=== PATIENT | female | born 1955 | race Caucasian/White ===

== ENCOUNTER 2020-05-06 10:34 | Outpatient (REF) | payer MEDICARE, SELFPAY ==
[2020-05-06 13:41] LABS: Iron 41 mcg/dL (30-160); Percent Iron Saturation 10 % (15-50); Total Iron Binding Capacity 405 mcg/dL (228-428); Unsaturated Iron Binding 364 ug/dL
[2020-05-06 14:05] LABS: Ferritin 10 ng/mL (10-250)
[2020-05-06 14:27] LABS: Folate 3.9 ng/mL (> or = 4.0); Vitamin B12 249 pg/mL (200-900)
== END 2020-05-06 10:35 | disposition home or self-care (01) ==
LOC: HO.MANLDS 10:34
PROVIDERS: PCP Physician Assistant; Visit Provider Physician Assistant
DX: L60.8 Other nail disorders (principal)
CPT/HCPCS: 82607; 82728; 82746; 83540

== ENCOUNTER 2021-06-02 10:23 | Outpatient (REF) | payer MEDICARE, SELFPAY ==
[2021-06-02 13:56] LABS: MANUAL DIFF FLAG NO
[2021-06-02 14:01] LABS: Basophils Percent Auto 0.6 % (0-2); Eosinophils Absolute Auto 0.2 X10*3/uL (0.0-0.4); Eosinophils Percent Auto 3.1 % (0-4); Hematocrit 26.7 % (37.0-47.0); Hemoglobin 7.4 g/dl (12.0-16.0); Imm Gran Abs Auto 0.03 X10*3/uL (0.00-0.03); Imm Gran Pct Auto 0.4 % (0.0-0.4); Lymphocytes Absolute Auto 1.9 X10*3/uL (1.2-4.9); Lymphocytes Percent Auto 27.8 % (20-40); Mean Corpuscular HGB Conc 27.7 g/dl (31.0-35.0); Mean Corpuscular Hemoglobin 21.6 pg (27.0-33.0); Mean Corpuscular Volume 78.1 fL (80.0-98.0); Mean Platelet Volume 10.1 fL (9.4-12.3); Monocytes Percent Auto 15.4 % (2-11); Neutrophils Absolute Auto 3.6 x10*3/uL (2.0-8.3); Neutrophils Percent Auto 52.7 % (45-73); Platelet Count 389 X10*3/uL (160-400); Red Blood Count 3.42 X10*6/uL (4.20-5.50); White Blood Count 6.8 X10*3/uL (4.8-10.8)
[2021-06-02 14:25] LABS: Alanine Aminotransferase 12 U/L (0-31); Alkaline Phosphatase 91 U/L (39-117); Anion Gap 16 (12-20); Aspartate Amino Transferase 17 U/L (5-31); Bilirubin Total 0.2 mg/dL (0.0-1.0); Blood Urea Nitrogen 11 mg/dL (9-16); Calcium 9.1 mg/dL (8.4-10.2); Carbon Dioxide 23 mmol/L (22-29); Chloride 104 mmol/L (96-108); Cholesterol 108 mg/dL; Estimated Glomerular Filt Rate > 60; Glucose Fasting 87 mg/dL (60-99); HDL Cholesterol 44 mg/dL; LDL Cholesterol Calculated 43 mg/dl; Potassium 4.6 mmol/L (3.3-5.1); Sodium 138 mmol/L (135-145); Total Protein 7.2 g/dL (6.5-8.0); Triglycerides 108 mg/dL
== END 2021-06-02 10:24 | disposition home or self-care (01) ==
LOC: HO.MANLDS 10:23
PROVIDERS: PCP Physician Assistant; Visit Provider Physician Assistant
DX: F17.290 Nicotine dependence, other tobacco product, uncomplicated (principal)
CPT/HCPCS: 36415; 80053; 80061; 85025

== ENCOUNTER 2021-07-14 15:42 | Outpatient (REF) | payer MEDICARE, SELFPAY ==
[2021-07-14 18:05] LABS: Iron 13 mcg/dL (30-160); Percent Iron Saturation 2 % (15-50); Total Iron Binding Capacity 529 mcg/dL (228-428); Unsaturated Iron Binding 516 ug/dL
[2021-07-14 18:26] LABS: Ferritin 6 ng/mL (10-250)
== END 2021-07-14 15:43 | disposition home or self-care (01) ==
LOC: HO.MANLDS 15:42
PROVIDERS: PCP Physician Assistant; Visit Provider Physician Assistant
DX: D64.9 Anemia, unspecified (principal)
CPT/HCPCS: 36415; 82728; 83540

== ENCOUNTER 2021-08-17 14:25 | Outpatient (REF) | payer MEDICARE, SELFPAY ==
[2021-08-17 19:59] LABS: Hematocrit 38.2 % (37.0-47.0); Hemoglobin 10.7 g/dl (12.0-16.0); Mean Corpuscular Hemoglobin 23.4 pg (27.0-33.0); Mean Corpuscular Volume 83.6 fL (80.0-98.0); Mean Platelet Volume 10.2 fL (9.4-12.3); Platelet Count 289 X10*3/uL (160-400); Red Blood Count 4.57 X10*6/uL (4.20-5.50); White Blood Count 5.6 X10*3/uL (4.8-10.8)
[2021-08-17 20:06] LABS: Iron 18 mcg/dL (30-160); Percent Iron Saturation 3 % (15-50); Total Iron Binding Capacity 515 mcg/dL (228-428); Unsaturated Iron Binding 497 ug/dL
[2021-08-17 20:27] LABS: Ferritin 31 ng/mL (10-250)
[2021-08-17 21:09] LABS: Basophils Abs Manual 0.1 X10*3/uL (0.0-0.2); Basophils Percent Manual 1 % (0-2); Eosinophils Absolute Manual 0.1 X10*3/uL (0.0-0.4); Eosinophils Percent Manual 2 % (0-4); Lymphocytes Absolute Manual 1.6 X10*3/uL (1.2-4.9); Lymphocytes Percent Manual 29 % (20-40); Monocytes Absolute Manual 0.4 X10*3/uL (0.1-1.2); Monocytes Percent Manual 7 % (2-11); Neutrophils Percent Manual 61 % (45-73)
[2021-08-17 21:14] LABS: RBC Morphology NOTED
[2021-08-17 21:16] LABS: Macrocytosis 1+ (5-14) /OIF
[2021-08-17 21:17] LABS: Microcytosis 1+ (5-14) /OIF; Platelet Estimate SLIGHTLY DECREASED (NORMAL); Platelet Morphology Comment NORM
[2021-08-17 21:18] LABS: Hypochromasia 1+ (5-14) /OIF; Ovalocytes 1+ (5-14) /OIF; Polychromasia 1+ (0-2) /OIF; Smudge Cells PRESENT
[2021-08-18 07:30] LABS: Band Neutrophils Percent 0 % (3-5); Neutrophils Absolute Manual 3.4 X10*3/uL (2.0-8.3)
== END 2021-08-17 14:26 | disposition home or self-care (01) ==
LOC: HO.MANLDS 14:25
PROVIDERS: PCP Physician Assistant; Visit Provider Physician Assistant
DX: D64.9 Anemia, unspecified (principal)
CPT/HCPCS: 36415; 82728; 83540; 85007; 85025; 85027

== ENCOUNTER 2022-10-25 08:38 | Outpatient (REF) | payer MEDICARE, SELFPAY ==
[2022-10-25 11:15] LABS: MANUAL DIFF FLAG NO
[2022-10-25 11:41] LABS: Basophils Percent Auto 0.6 % (0-2); Eosinophils Absolute Auto 0.1 X10*3/uL (0.0-0.4); Eosinophils Percent Auto 1.8 % (0-4); Hematocrit 46.3 % (37.0-47.0); Hemoglobin 14.7 g/dl (12.0-16.0); Imm Gran Abs Auto 0.02 X10*3/uL (0.00-0.03); Imm Gran Pct Auto 0.4 % (0.0-0.4); Lymphocytes Absolute Auto 1.8 X10*3/uL (1.2-4.9); Lymphocytes Percent Auto 34.6 % (20-40); Mean Corpuscular HGB Conc 31.7 g/dl (31.0-35.0); Mean Corpuscular Hemoglobin 30.1 pg (27.0-33.0); Mean Corpuscular Volume 94.9 fL (80.0-98.0); Monocytes Absolute Auto 0.6 X10*3/uL (0.1-1.2); Monocytes Percent Auto 12.1 % (2-11); Neutrophils Absolute Auto 2.6 x10*3/uL (2.0-8.3); Neutrophils Percent Auto 50.5 % (45-73); Platelet Count 152 X10*3/uL (160-400); Red Blood Count 4.88 X10*6/uL (4.20-5.50); Red Cell Distribution Width 13.5 % (11.0-16.0); White Blood Count 5.1 X10*3/uL (4.8-10.8)
[2022-10-25 12:42] LABS: Alanine Aminotransferase 14 U/L (0-31); Albumin Level 4.3 g/dL (3.5-5.0); Alkaline Phosphatase 98 U/L (39-117); Anion Gap 13 (12-20); Aspartate Amino Transferase 18 U/L (5-31); Bilirubin Total 0.2 mg/dL (0.0-1.0); Blood Urea Nitrogen 11 mg/dL (9-16); Calcium 9.6 mg/dL (8.4-10.2); Carbon Dioxide 27 mmol/L (22-29); Chloride 106 mmol/L (96-108); Estimated Glomerular Filt Rate > 60; Glucose Random 71 mg/dL (60-115); Iron 49 mcg/dL (30-160); Percent Iron Saturation 13 % (15-50); Potassium 4.8 mmol/L (3.3-5.1); Sodium 141 mmol/L (135-145); Total Iron Binding Capacity 367 mcg/dL (228-428); Total Protein 7.4 g/dL (6.5-8.0); Unsaturated Iron Binding 318 ug/dL
[2022-10-25 13:12] LABS: Ferritin 24 ng/mL (10-250); Folate 5.9 ng/mL (> or = 4.0); Vitamin B12 282 pg/mL (200-900); Vitamin D 25-OH Total 7.6 ng/mL (>30)
[2022-10-27 13:04] LABS: Lyme Abs Screen <0.90 index
== END 2022-10-25 08:39 | disposition home or self-care (01) ==
LOC: HO.MANLDS 08:38
PROVIDERS: Visit Provider Physician Assistant
DX: K57.12 Diverticulitis of small intestine without perforation or abscess without bleeding (principal); D50.0 Iron deficiency anemia secondary to blood loss (chronic); E55.9 Vitamin D deficiency, unspecified; T14.8XXA Other injury of unspecified body region, initial encounter; W57.XXXA Bitten or stung by nonvenomous insect and other nonvenomous arthropods, initial encounter
CPT/HCPCS: 36415; 80053; 82306; 82607; 82728; 82746; 83540; 85025; 86617; 86618

== ENCOUNTER 2024-04-18 11:22 | Outpatient (REF) | payer MEDICARE, SELFPAY ==
[2024-04-18 13:11] LABS: MANUAL DIFF FLAG NO
[2024-04-18 13:22] LABS: Basophils Absolute Auto 0.1 X10*3/uL (0.0-0.2); Basophils Percent Auto 0.9 % (0-2); Eosinophils Absolute Auto 0.1 X10*3/uL (0.0-0.4); Hematocrit 41.6 % (37.0-47.0); Hemoglobin 13.7 g/dl (12.0-16.0); Imm Gran Abs Auto 0.01 X10*3/uL (0.00-0.03); Imm Gran Pct Auto 0.2 % (0.0-0.4); Lymphocytes Absolute Auto 2.2 X10*3/uL (1.2-4.9); Lymphocytes Percent Auto 38.4 % (20-40); Mean Corpuscular HGB Conc 32.9 g/dl (31.0-35.0); Mean Corpuscular Hemoglobin 31.7 pg (27.0-33.0); Mean Corpuscular Volume 96.3 fL (80.0-98.0); Mean Platelet Volume 10.2 fL (9.4-12.3); Monocytes Absolute Auto 0.6 X10*3/uL (0.1-1.2); Monocytes Percent Auto 11.4 % (2-11); Neutrophils Absolute Auto 2.7 x10*3/uL (2.0-8.3); Neutrophils Percent Auto 47.1 % (45-73); Platelet Count 229 X10*3/uL (160-400); Red Blood Count 4.32 X10*6/uL (4.20-5.50); Red Cell Distribution Width 13.5 % (11.0-16.0); White Blood Count 5.6 X10*3/uL (4.8-10.8)
[2024-04-18 13:41] LABS: Alanine Aminotransferase 14 U/L (0-31); Albumin Level 4.1 g/dL (3.5-5.0); Alkaline Phosphatase 73 U/L (39-117); Anion Gap 14 (12-20); Aspartate Amino Transferase 28 U/L (5-31); Bilirubin Total 0.2 mg/dL (0.0-1.0); Blood Urea Nitrogen 15 mg/dL (9-16); Carbon Dioxide 27 mmol/L (22-29); Chloride 104 mmol/L (96-108); Estimated Glomerular Filt Rate > 60; Glucose Random 103 mg/dL (60-115); Iron 65 mcg/dL (30-160); Percent Iron Saturation 19 % (15-50); Potassium 5.9 mmol/L (3.3-5.1); Sodium 139 mmol/L (135-145); Total Iron Binding Capacity 342 mcg/dL (228-428); Total Protein 7.6 g/dL (6.5-8.0); Unsaturated Iron Binding 277 ug/dL
[2024-04-18 13:56] LABS: Ferritin 29 ng/mL (10-250)
[2024-04-26 15:53] LABS: VITAMIN D (1,25 OH) D3 <8 pg/mL; Vit D (1,25-Dihydroxy) Total 60 pg/mL (18-72); Vitamin D (1,25 OH) D2 60 pg/mL
== END 2024-04-18 11:23 | disposition home or self-care (01) ==
LOC: HO.MANLDS 11:22
PROVIDERS: Visit Provider Physician Assistant
DX: K57.12 Diverticulitis of small intestine without perforation or abscess without bleeding (principal); D50.0 Iron deficiency anemia secondary to blood loss (chronic); E55.9 Vitamin D deficiency, unspecified
CPT/HCPCS: 36415; 80053; 82652; 82728; 83540; 85025

== ENCOUNTER 2025-05-01 09:43 | Outpatient (REF) | payer MEDICARE, SELFPAY ==
--- OUTSIDE RECORDS SUMMARY | 2025-05-01 11:02 | XMS_ITS | Encounter Summary ---
Author Organization [facility] Address [address] [place] [address] Phone Care Team Providers Care Industrial Technology Education Teacher Name Role Phone Garth Rudolph Primary Care Provider [phone] Encounter Details Date Type Department Care Team (Late st Contact Info) Description 12/19/2020 Ancillary Orders [facility] [address] [place] [address] Gato Fisher DO [address] [place] [id number] [email or web address] PVD (peripheral vascular disease) Social History Tobacco Use Types Packs/Day Years Used Date Smoking Tobacco: Every Day Cigarettes Smokeless Tobacco: Never Comments:2 cigarrettes a day Alcohol Use Standard Drinks/Week Comments Yes 10 (1 standard drink = 0.6 oz pu re alcohol) 2 glasses per day Comments No Sex and Gender Information Value Date Recorded Sex Assigned at Not on file Legal Sex Female 9:56 PM EDT Gender Identity Not on file Sexual Orientation Not on file documented as of this encounter Plan of Treatment Upcoming Encounters Date Type Department Care Team (Late st Contact Info) Description 04/22/2025 Procedure Pass [facility], [address] [address] 06/19/2025 8:30 AM EST Appointment [facility] [address] [place] [address] Gato Fisher DO [address] [place] [id number] 06/26/2025 12:30 PM EST Office Visit [facility] [address] [facility] 3rd Floor, [address] [place] [address] Nu Drummond, MARIO [address] [facility], [address] [place] [address] 10/03/2025 11:45 AM EDT Appointment [address] [address] Garth Rudolph DO [address] [place] [address] [email or web address] 01/13/2026 11:30 AM EDT Appointment [facility] [address] [place] [address] Garth Rudolph, DO [address] [place] [address] documented as of this encounter Results * US Lower Extremity Arteries (MARY) Physio Complete Unilat (12/19/2020 11:03 AM EDT) Anatomical Region Laterality Modality Ultrasound Narrative 12/24/2020 2:20 PM EDT See scanned report Procedure Note Gato Fisher DO - 12/24/2020 See scanned report us Gato Fisher DO CV US VASCULAR Final Result documented in this encounter Visit Diagnoses Diagnosis 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 It is not the complete legal health record.[facility]
--- OUTSIDE RECORDS SUMMARY | 2025-05-01 11:02 | XMS_ITS | Encounter Summary ---
Author Organization [facility] Address [address] [place] [address] Phone Care Team Providers Care Skatesman Name Role Phone Garth Rudolph Primary Care Provider [phone] Reason for Referral * - Closed Specialty Diagnoses / Procedures Referred By Contac t Referred To Contact Radiology Diagnoses PAD (peripheral artery disease) Procedures US Lower Extremity Arteries (MARY) Physio Complete Bilat Ben Pompa NP Phone: tel: fax: mailto: Referral ID Status Reason Start Date Expiration Date Visits Re quested Visits Authorized [id number] Closed 07/22/2023 07/21/2024 1 1 Encounter Details Date Type Department Care Team (Latest Contact Info) Description 07/22/2023 Ancillary Orders [facility] [address] [place] [address] 3rd Floor, [address] [place] [address] Ben Pompa NP [address] [place] [address] [email or web address] PAD (peripheral artery disease) (Primary Dx) Social History Tobacco Use Types Packs/Day Years Used Date Smoking Tobacco: Every Day Cigarettes 0.5 57.1 Started: 03/20/1969 Smokeless Tobacco: Never Comments:none Alcohol Use Standard Drinks/Week Comments Yes 8 (1 standard drink = 0.6 oz pur e alcohol) none Education Answer Date Recorded Are you interested in more education? Not on indira e 10/15/2022 Are you concerned about learning? Not on file 10/15/2022 No 10/15/2022 No 10/15/2022 Digital Access Answer Date Recorded No 11/11/2022 No 11/11/2022 Reliable internet access at home? Not on file 11/11/2022 Device with a working camera? Not on file Comments No Sex and Gender Information Value Date Recorded Sex Assigned at Not on file Legal Sex Female 9:56 PM EDT Gender Identity Not on file Sexual Orientation Not on file documented as of this encounter Plan of Treatment Upcoming Encounters Date Type Department Care Team (Late st Contact Info) Description 04/22/2025 Procedure Pass [address] [address] 06/19/2025 8:30 AM EST Appointment [facility] [place] [address] Gato Fisher, [address] [address] 06/26/2025 12:30 PM EST Office Visit [facility] [address] [place] [address], [address] [address] Nu Drummond, [address], [address] [address] 10/03/2025 11:45 AM EDT Appointment [facility] [address] [address] Garth Rudolph, DO [address] [place] [address] [place] [address] 01/13/2026 11:30 AM EDT Appointment [address] [address] Garth Rudolph JinDO [address] [facility] [place] [address] [email or web address] documented as of this encounter Results * US Lower Extremity Arteries (MARY) Physio Complete Bilat (07/22/2023 11:10 AM EST) Posterior Tibial 0 mmHg Posterior Tibial Index 0.00 Dorsalis Pedis 130 mmHg Dorsalis Pedis Index 0.96 Arm 135 mmHg Posterior Tibial 80 mmHg Posterior Tibial Index 0.59 Dorsalis Pedis 80 mmHg Dorsalis Pedis Index 0.59 Anatomical Region Laterality Modality Ultrasound Narrative 07/25/2023 1:23 PM EST This patient's MARY on the right is normal at 0.96 and moderately reduced 8.59 on the left Lower Extremity SDP PVR Right Right MARY: 0.96 Left MARY: 0.59 us Ben Pompa V, FOREMAN OR SUPERVISOR AND OPERATOR CV US VASCULAR Final Resu lt documented in this encounter Visit Diagnoses Diagnosis PAD (peripheral artery disease) Unspecified peripheral vascular disease PAD (peripheral artery disease)- Primary Unspecified peripheral vascular disease documented in this encounter Care Teams Skatesman Relationship Specialty Start Date End Date Garth Rudolph [email or web address] PCP - General 04/04/17 documented as of this encounter Additional Source Comments The information contained in this document represents components of the legal health record. It is not the complete legal health record.[facility]
--- OUTSIDE RECORDS SUMMARY | 2025-05-01 11:02 | XMS_ITS | Clinical Summary ---
Author Organization [facility] Address [address] [place] [id number] Phone Care Team Providers Care Supervisor Grower Name Role Phone Reginald Rajan Primary Care Provider [phone] Allergies Active Allergy Reactions Criticality Noted Date Comments Cefaclor 07/31/2020 Methylprednisolone Anaphylaxis High 12/01/2020 Medications cetirizine-pse udoephedrine (ZYRTEC-D) 5-120 mg per tablet Take 1 tablet by mouth 2 (two) times a day. Active acetaminophen (TYLENOL) 500 MG tablet Take 500 mg by mouth every 6 (six) hours as needed for pain (specific location in comments). Active albuterol 90 mcg/actuation inhaler Inhale 2 puffs into the lungs as needed. Active montelukast (SINGULAIR) 10 mg tablet Take 10 mg by mouth daily. Active ergocalciferol (DRISDOL) 50,000 unit capsule ergocalciferol (vitamin D2) 1,250 mcg (50,000 unit) capsule TAKE 1 CAPSULE BY MOUTH EVERY WEEK 3 Active amoxicillin (AMOXIL) 500 MG capsule as needed (for dental). 4 Active azithromycin (ZITHROMAX) 250 MG tablet TAKE 2 TABLETS (500 MG) BY ORAL ROUTE ONCE DAILY FOR 1 DAY THEN 1 TABLET (250 MG) BY ORAL ROUTE ONCE DAILY FOR 4 DAYS Active hydrOXYzine (ATARAX) 25 MG tablet Active rosuvastatin (CRESTOR) 40 MG tabletIndicati ons:Medication refill TAKE 1 TABLET BY MOUTH DAILY 90 tablet 3 4 Active clopidogrel (PLAVIX) 75 mg tabletIndicati ons:PAD (peripheral artery disease) TAKE 1 TABLET(75 MG) BY MOUTH DAILY 90 tablet 3 5 Active Active Problems Problem Noted Date Diagnosed Date PVD (peripheral vascular disease) 04/10/2024 PAOD (peripheral arterial occlusive disease) 06/2020 Assessment & Plan (10/23/2024 10:26 AM EDT): She has had a chronic total occlusion of the left superficial femoral artery without iliac disease we will monitor her ultrasounds closely twice a year and I will see her thereafter in follow-up Assessment & Plan (03/12/2022 9:04 AM EDT): She has a known total occlusion of the left superficial femoral artery.Recent ABIs and arterial duplex study shows no change to her disease. She recently discontinued her aspirin at her PCPs request due to a newfound anemia. She does remain on clopidogrel 75 mg daily she was encouraged to continue this. She does continue to smoke and is actively trying to quit. She will also remain on to rosuvastatin 40 mg daily. We will repeat her ABIs and arterial duplex study in 6 months and see her in follow-up after that. Assessment & Plan (12/01/2020 11:40 AM EDT): This patient has a chronic total occlusion of the left superficial femoral artery that is asymptomatic and a recanalized right SFA that we will check with a post intervention ultrasound. Assessment & Plan (08/04/2020 10:20 AM EST): As mentioned she is going to get a recanalization procedure this upcoming on the right lower extremity I explained risk benefits and alternatives to her regarding this . Assessment & Plan (07/21/2020 12:12 PM EST): As mentioned she is going to end up needing an intervention I have ordered her an urgent lower extremity arterial duplex mapping ultrasound I will see her thereafter in follow-up and then plan intervention. I asked her to start taking aspirin 81 mg daily and a statin agent Smoker 07/21/2020 Assessment & Plan (10/23/2024 10:26 AM EDT): Obviously this is a problem for the patient she is well aware Assessment & Plan (04/10/2024 12:09 PM EDT): I strongly counseled her on smoking cessation today and spent 10 minutes doing this Assessment & Plan (08/04/2020 10:21 AM EST): I counseled her regarding this again Assessment & Plan (07/21/2020 12:13 PM EST): I aggressively counseled her on smoking cessation Pure hypercholesterolemia 07/21/2020 Assessment & Plan (10/23/2024 10:26 AM EDT): LDL is aggressively controlled Assessment & Plan (04/10/2024 12:09 PM EDT): LDL on the statin is aggressively controlled Assessment & Plan (08/30/2023 1:02 PM EDT): Most recent LDL on file is 39 but pt is due for repeat fasting labs which were ordered today. Will continue rosuvastatin 40 mg daily which patient is tolerating well. Again encouraged smoking cessation. Assessment & Plan (03/12/2022 9:04 AM EDT): Continue rosuvastatin 40 mg daily Assessment & Plan (12/01/2020 11:41 AM EDT): As mentioned she has in adequate control of lipids LDL still over 130 and should be less than 70 I am doubling Crestor to 40 and cautioned her on what she is eating as mentioned above Assessment & Plan (08/04/2020 10:21 AM EST): LDL will hopefully be less than 70 mg/dL on Crestor 20 mg a day Assessment & Plan (07/21/2020 12:13 PM EST): I have started her on Crestor 20 mg daily LDL should be less than 70 mg/dL Stenosis of carotid artery 07/21/2020 Assessment & Plan (10/23/2024 10:26 AM EDT): She does have minor internal carotid artery stenosis nothing significant or more than 20% Assessment & Plan (04/10/2024 12:08 PM EDT): She has minimal bilateral ICA disease at some point we will just repeat her ultrasound Assessment & Plan (03/12/2022 9:04 AM EDT): Mild bilateral ICA disease. To remain on her medications without change. Assessment & Plan (12/01/2020 11:40 AM EDT): Mild bilateral ICA disease Assessment & Plan (08/04/2020 10:21 AM EST): She has mild bilateral ICA disease after reviewing her recent carotid duplex Assessment & Plan (07/21/2020 12:13 PM EST): Due to bruits I have ordered her carotid duplex Resolved Problems Problem Noted Date Diagnosed Date Resolved Date Claudication of both upper e xtremities due to atherosclerosis 12/01/2020 10/23/2024 Assessment & Plan (04/10/2024 12:08 PM EDT): She is not symptomatic from her PVD and has good collateralization to a chronic total occlusion of the left SFA Encounters Date Type Department Care Team Description 04/22/2025 Transcribe Orders [facility] Department [address] [place] [address] Reginald Rajan, DO Encounter for screening for osteoporosis (Primary Dx); Breast screening from Last 3 Months Immunizations Immunization Administration Dates Next Due COVID-19 (Pre-04/11) Moderna Vaccine, mRNA, PF 11/02/2020,10/05/2020 COVID-19 Pfizer Comirnaty Vaccine 12+ 03/19/2023 INFLUENZA, SPLIT VIRUS, TRIVALENT PF 06/18/2017, 04/05/2016,04/14/2015 Influenza High-Dose Quadriva lent Preservative Free IM 03/19/2023 Influenza Quadrivalent Adjuv anted Preservative Free IM 04/23/2022,04/04/2021 Influenza Quadrivalent Preservative Free IM 10/2018,04/09/2018 Influenza Quadrivalent w/ Preservative IM 2018,04/09/2018 Influenza, Unspecified Formulation 04/10/2009 Pneumococcal conjugate PCV13 04/09/2018 Pneumococcal polysaccharide PPSV23 04/30/2019 RSV Vaccine (bivalent) 03/19/2023 Tdap 04/04/2021 Family History Medical History Relation Comments Breast cancer Cousin Breast cancer Maternal Aunt Cancer Mother Relation Status Comments Cousin Maternal Aunt Mother Social History Tobacco Use Types Packs/Day Years Used Date Smoking Tobacco: Every Day Cigarettes 0.5 57.1 Started: 03/20/1968 Smokeless Tobacco: Never Tobacco Cessation:Ready to Q uit: Not Asked; Counseling Given: Not Answered Comments:none Alcohol Use Standard Drinks/Week Comments Yes 8 (1 standard drink = 0.6 oz pur e alcohol) daily x2 Education Answer Date Recorded Are you interested in more education? Not on indira e 10/15/2022 Are you concerned about learning? Not on file 10/15/2022 No 10/15/2022 No 10/15/2022 Digital Access Answer Date Recorded No 11/11/2022 No 11/11/2022 Reliable internet access at home? Not on file 11/11/2022 Device with a working camera? Not on file Intimate Partner Violence Answer Date R ecorded Are you denied basic needs s uch as food, clothing, or medical care? No 07/09/2024 In the past 12 months have y ou been in a relationship with a person who hurts, threatens, or tries to control you? No 07/09/2024 Are you denied basic needs s uch as food, clothing, or medical care? No 07/09/2024 In the past 12 months have y ou been in a relationship with a person who hurts, threatens, or tries to control you? No 07/09/2024 Comments No Sex and Gender Information Value Date Recorded Sex Assigned at Not on file Legal Sex Female 9:56 PM EDT Gender Identity Not on file Sexual Orientation Not on file Last Filed Vital Signs Vital Sign Reading Time Taken Comments Blood Pressure 112/64 10/23/2024 10:13 AM EDT Pulse 61 10/23/2024 10:13 AM EDT Temperature 36 C (96.8 F) 07/09/2024 11:38 AM EST Respiratory Rate 18 07/09/2024 11:53 AM EST Oxygen Saturation 99% 10/23/2024 10:13 AM EDT Inhaled Oxygen Concentration - - Weight 61.2 kg (135 lb) 10/23/2024 10:13 AM EDT Height 157.5 cm (5' 2 ) 10/23/2024 10:13 AM EDT Body Mass Index 24.69 10/23/2024 10:13 AM EDT Plan of Treatment Upcoming Encounters Date Type Department Care Team (Late st Contact Info) Description 04/22/2025 Procedure Pass [address] [address] 06/19/2025 8:30 AM EST Appointment [facility] [address] Gato Fisher, DO [address] [place] [address] 06/26/2025 12:30 PM EST Office Visit [facility] [address] [place] [address], [address] [address] Nu Drummond, [address], [address] [address] 10/03/2025 11:45 AM EDT Appointment [address] [address] Reginald Rajan, DO [address] [place] [address] [place] [address] 01/13/2026 11:30 AM EDT Appointment [address] [address] Reginald Rajan, DO [address] [facility] [place] [address] [place] [address] Health Maintenance Due Date Last Done Comments DEPRESSION SCREENING 1966 HEPATITIS C SCREENING 1972 COLOGUARD 1999 FIT TEST 1999 FOBT 1999 SIGMOIDOSCOPY 1999 VIRTUAL COLONOSCOPY 1999 LUNG CANCER SCREENING (LDCT Only) 2004 ZOSTER VACCINES (1 of 2) 2004 OSTEOPOROSIS SCREENING INITIAL (ONE-TIME) 2019 MAMMOGRAM 09/29/2024 09/29/2022, 07/22, 08/08/2018, Additional history exists INFLUENZA VACCINE (#1) 2025 , 03/19/2023, 04/23/2022, Additional history exists COVID-19 VACCINE ( season) 2025 03/29/2024, 03/19/2023, 04/23/2022, Additional history exists SMOKING Hx and SMOKELESS TOBACCO SCREENING 10/23/2025 10/23/2024 Adult Td,Tdap Booster 04/04/2031 04/04/2021 COLONOSCOPY 07/09/2034 07/09/2024 COLORECTAL CANCER SCREENING 07/09/2034 PNEUMOCOCCAL VACCINES (50+ years) Completed 04/30/2019, 04/09/2018 RSV VACCINE Completed 03/19/2023 HEPATITIS A VACCINES Aged Out No long er eligible based on patient's age to complete this topic HIB VACCINES Aged Out No longer eligi ble based on patient's age to complete this topic IPV VACCINES Aged Out No longer eligi ble based on patient's age to complete this topic MENINGOCOCCAL VACCINES (ACWY) Aged Out No longer eligible based on patient's age to complete this topic MENINGOCOCCAL VACCINES (B) Aged Out N o longer eligible based on patient's age to complete this topic Medical Devices Implanted Type Area [employer] Superintendent Device Identifier Shelf Expiration Date Model / Serial / Lot Stent Left: Leg Procedures Procedure Name Priority Date/Time Associated Diagnosis Comments ENDOSCOPY, COLON 07/09/2024 11:0 9 AM EST BI MAMMOGRAM SCREENING WITH TOMOSYNTHESIS WITH CAD (BILATERAL) Routine 09/29/2022 11:27 AM EDT Breast screening from Last 3 Months or Most Recently Relevant to Health Maintenance Results * ENDOSCOPY, COLON (07/09/2024 11:09 AM EST) Narrative Transcriptions Jimmy Georges MD - 07/09/2024 11:09 AM EST [facility] Patient Name: Helen Alvarez Attending MD:: JIMMY GEORGES MD, , Procedure Date: 07/09/2024 11:09 AM Date of : 1955 Age: 69 Admit Type: Outpatient Gender: Female Room: [place] [address] Referring MD: REGINALD RAJAN DO Exam Type: Colonoscopy Indications: Screening for colorectal malignant neoplasm Medications: Monitored Anesthesia Care Procedure: Informed consent was obtained from the patientafter discussion of the indications, limitations, alternatives, benefits, and risks of the procedure. Risks specifically discussed include but are not limited to medication reactions, missed lesions, bleeding, perforation, or the need for emergent surgery. Throughout the procedure, the patient's blood pressure, pulse, end-tidal CO2, and oxygensaturations were monitored continuously. The Olympus pediatric variable [id number] #3 was introduced through the anus and advanced tothe cecum, identified by appendiceal orifice andileocecal valve. The colonoscopy was performed without difficulty. The patient tolerated the procedurewell. The quality of the bowel preparation was excellent. The quality of the bowel preparation was evaluated using the BBPS ([place] Bowel Preparation Scale)with scores of: Right Colon = 3, Transverse Colon = 3and Left Colon = 3 (entire mucosa seen well with no residual staining, small fragments of stool oropaque liquid). The total BBPS score equals 9. Anatomical landmarks were photographed. Complications: No immediate complications. Estimated blood loss: Minimal. Findings: The perianal and digital rectal examinations were normal. Three sessile polyps were found in the transverse colon. The polyps were 3 to 7 mm in size. Thesepolyps were removed with a cold snare. Resection and retrieval were complete. Two sessile polyps were found in the descendingcolon. The polyps were 3 to 5 mm in size. These polypswere removed with a cold snare. Resection and retrieval were complete. Scattered small and large-mouthed diverticula were found in the sigmoid colon, descending colon and ascending colon. Internal hemorrhoids were found duringretroflexion. The hemorrhoids were mild. The exam was otherwise normal throughout theexamined colon. Impression: - Three 3 to 7 mm polyps in the transverse colon, removed with a cold snare. Resected andretrieved. - Two 3 to 5 mm polyps in the descending colon, removed with a cold snare. Resected andretrieved. - Moderate diverticulosis in the sigmoid colon, inthe descending colon and in the ascending colon. - Internal hemorrhoids. Recommendation: - Discharge patient to home. - Await pathology results. - Resume Plavix (clopidogrel) at prior dosetomorrow. JIMMY GEORGES MD, 07/09/2024 11:37:41 AM This report has been signed electronically. Number of Addenda: 0 Note Initiated On: 07/09/2024 11:09 AM Procedure Code(s): --- Professional --- 31733, Colonoscopy, flexible; with removal of tumor(s), polyp(s), or other lesion(s) by snare technique --- Technical --- 29476, Colonoscopy, flexible; with removal of tumor(s), polyp(s), or other lesion(s) by snare technique Diagnosis Code(s): --- Professional --- Z12.11, Encounter for screening for malignantneoplasm of colon D12.3, Benign neoplasm of transverse colon (hepatic flexure or splenic flexure) D12.4, Benign neoplasm of descending colon K64.8, Other hemorrhoids K57.30, Diverticulosis of large intestine without perforation or abscess without bleeding --- Technical --- Z12.11, Encounter for screening for malignantneoplasm of colon D12.3, Benign neoplasm of transverse colon (hepatic flexure or splenic flexure) D12.4, Benign neoplasm of descending colon K64.8, Other hemorrhoids K57.30, Diverticulosis of large intestine without perforation or abscess without bleeding CPT copyright 2021 [employer]. All rights reserved. The codes documented in this report are preliminary and upon harness builder reviewmay be revised to meet current compliance requirements. Procedure Date: 07/09/2024 11:09:[address] [place] [address] [place] Reginald A Bigda DO GI PROCEDURE ORDERABLES Final Re sult * BI MAMMOGRAM SCREENING WITH TOMOSYNTHESIS WITH CAD (BILATERAL) (09/29/2022 11:27 AM EDT) Anatomical Region Laterality Modality Breast Left, Breast Right, Breast Bilateral Bila teral Mammography 09/29/2022 2:18 PM EDT Impressions 09/30/2022 2:44 PM EDT BILATERAL BREASTS: Negative, no evidence of malignancy. Recommend bilateral annual screening mammography in 12 months. Bi-RADS: BI-RADS CATEGORY: 1 - Negative. DENSITY: There are scattered fibroglandular densities. RIGHT RECOMMENDATION DUE DATE: 12 Months Recommendation: Right Mammography Screening LEFT RECOMMENDATION DUE DATE: 12 Months Recommendation: Left Mammography Screening Narrative 09/30/2022 2:44 PM EDT STUDY: Bilateral screening mammography with tomosynthesis and CAD TECHNIQUE: Bilateral full-field digital screening mammography is obtained and read in conjunction with computer-aided detection. Tomosynthesis as well as 2-D C view imaging were obtained. COMPARISON: Comparison made to multiple prior studies dating back to February 2013, the most recent dated July 2019. BILATERAL BREASTS: No new masses, suspicious calcifications or other abnormalities are seen. No significant interval change. Procedure Note Mary Zayas MD - 09/30/2022 STUDY: Bilateral screening mammography with tomosynthesis and CAD TECHNIQUE: Bilateral full-field digital screening mammography is obtainedand read in conjunction with computer-aided detection. Tomosynthesis aswell as 2-D C view imaging were obtained. COMPARISON: Comparison made to multiple prior studies dating back toS2012, the most recent dated July 2019. BILATERAL BREASTS: No new masses, suspicious calcifications or otherabnormalities are seen. No significant interval change. IMPRESSION: BILATERAL BREASTS: Negative, no evidence of malignancy. Recommendbilateral annual screening mammography in 12 months. Bi-RADS: BI-RADS CATEGORY: 1 - Negative. DENSITY: There are scattered fibroglandular densities. RIGHT RECOMMENDATION DUE DATE: 12 Months Recommendation: Right Mammography Screening LEFT RECOMMENDATION DUE DATE: 12 Months Recommendation: Left Mammography Screening us Reginald A Bigda DO IMG MG EXAMS Final Result from Last 3 Months or Most Recently Relevant to Health Maintenance Insurance [place] P[place] BLUE REPLACEMENT MEDICARE PPO BLUE REPLACEMENT MEDICARE PPO BLUE REPLACEMENT MEDICARE PPO BLUE REPLACEMENT MEDICARE PPO BLUE REPLACEMENT MEDICARE PPO BLUE REPLACEMENT MEDICARE PPO BLUE REPLACEMENT [facility] MEDICARE PPO BLUE REPLACEMENT [facility] MEDICARE PPO BLUE REPLACEMENT Advance Directives For more information, please contact: [phone] (9AM - 5PM [facility], Tuesday-Tuesday) * Full Code (Latest Code Status on File) Date Activated Date Inactivated Comments 08/07/2020 2:47 PM Question Answer Comments Code Status Confirmed With: Patient Care Teams Supervisor Grower Relationship Specialty Start Date End Date Reginald Rajan DO PCP - General 04/04/17 Additional Source Comments The information contained in this document represents components of the legal health record. It is not the complete legal health record.[facility]
--- OUTSIDE RECORDS SUMMARY | 2025-05-01 11:02 | XMS_ITS | Encounter Summary ---
Author Organization [facility] Address [address] [place] [address] Phone Care Team Providers Care Preparation Supervisor Freezing Name Role Phone Ducmary anne Garth Abdi DO Primary Care Provider [phone] Garth Rudolph DO Unavailable Encounter Details Date Type Department Care Team (Late st Contact Info) Description 07/22/2017 Ancillary Orders Virtual Department [address] [place] [address] Garth Rudolph DO [address] [facility] [place] [address] [place] [address] Breast screening Social History Tobacco Use Types Packs/Day Years Used Date Smoking Tobacco: Never Assessed Comments No Sex and Gender Information Value Date Recorded Sex Assigned at Not on file Legal Sex Female 9:56 PM EDT Gender Identity Not on file Sexual Orientation Not on file documented as of this encounter Plan of Treatment Upcoming Encounters Date Type Department Care Team (Late Contact Info) Description 04/22/2025 Procedure Pass [facility], Mammography- [facility] [address] [place] [address] 06/19/2025 8:30 AM EST Appointment [facility] [address] [place] [address] Gato Fisher DO [address] [facility] [address] [place] [address] 06/26/2025 12:30 PM EST Office Visit [facility] [address] [facility] [address], [address] [place] [address] Nu Drummond, MARIO [address] [facility], [address] [place] [address] 10/03/2025 11:45 AM EDT Appointment [facility], Bone Density - [facility] [address] [place] [address] Garth Rudolph, DO [address] [facility] [address] [place], [place] [id number] 01/13/2026 11:30 AM EDT Appointment [facility], Mamm[address] [address] Garth Rudolph, DO [address] [facility] [place] [address] [place] [address] documented as of this encounter Results * BI MAMMOGRAM SCREENING WITH TOMOSYNTHESIS WITH CAD (BILATERAL) (08/08/2018 12:41 PM EST) Anatomical Region Laterality Modality Breast Left, Breast Right, Breast Bilateral Bila teral Mammography 08/08/2018 2:16 PM EST Impressions 08/08/2018 2:18 PM EST Stable appearance relative to prior imaging. No findings suggestive of malignancy are seen. BI-RADS CATEGORY: 2 - Benign finding. DENSITY: There are scattered fibroglandular densities. POS - [id number] Narrative 08/08/2018 2:18 PM EST Full-field digital mammography is obtained with computer-aided detection. Comparison with prior imaging from 07/22/2017 is made with older imaging dating back as far as 02/24/2012 also reviewed. There is scattered fibroglandular density evident in the breasts. In addition to 2-D C view imaging, tomosynthesis images are obtained in two projections of each breast. Scattered bilateral punctate calcifications are unchanged.. No dominant soft tissue mass of concern, suspicious cluster of calcifications, significant interval skin changes, or architectural distortion is identified. Procedure Note Feliciano Lees MD - 08/08/2018 Full-field digital mammography is obtained with computer-aided detection.Comparison with prior imaging from 07/22/2017 is made with older imagingdating back as far as 02/24/2012 also reviewed. There is scattered fibroglandular density evident in the breasts. Inaddition to 2-D C view imaging, tomosynthesis images are obtained in twoprojections of each breast. Scattered bilateral punctate calcifications are unchanged.. No dominantsoft tissue mass of concern, suspicious cluster of calcifications,significant interval skin changes, or architectural distortion isidentified. IMPRESSION: Stable appearance relative to prior imaging. No findings suggestive ofmalignancy are seen. BI-RADS CATEGORY: 2 - Benign finding. DENSITY: There are scattered fibroglandular densities. POS - [id number] Garth Rudolph DO IMG MG EXAMS Final Result documented in this encounter Visit Diagnoses Diagnosis Breast screening Breast screening, unspecified Breast screening Breast screening, unspecified documented in this encounter Care Teams Preparation Supervisor Freezing Relationship Specialty Start Date End Date Garth Rudolph DO PCP - General 04/04/17 Garth Rudolph DO [address] [place] [address] Insurance Assigned Provider 10/21/18 documented as of this encounter Additional Source Comments The information contained in this document represents components of the legal health record. It is not the complete legal health record.[facility]
--- OUTSIDE RECORDS SUMMARY | 2025-05-01 11:02 | XMS_ITS | Encounter Summary ---
Author Organization [facility] Address [address] [facility] [address] [place] [address] Phone Care Team Providers Care Beverage Distiller Name Role Phone Garth Rudolph Primary Care Provider [phone] Encounter Details Date Type Department Care Team (Late Contact Info) Description 08/07/2020 Procedure Pass [facility] Cardiovascular And Interventional Radiology [address] [place] [address] Social History Tobacco Use Types Packs/Day Years [...] (Late Contact Info) Description 04/22/2025 Procedure Pass [facility], [facility] [address] [place] [address] 06/19/2025 8:30 AM EST Appointment [facility] [place] [address] [address] [place] [address] Gato Fisher DO 22 [facility] [address] [place] [address] 06/26/2025 12:30 PM EST Office Visit [facility] 22 [facility] 3rd Floor, [address] [place] [address] Nu Drummond, DNP 22 [facility], [address] [place] [address] [email or web address] 10/03/2025 11:45 AM EDT Appointment [facility], Bone Density [address] [address] Garth Rudolph, DO 179 [place] [address] [email or web address] 01/13/2026 11:30 AM EDT Appointment [facility] Mammography[address] [address] Garth Rudolph, DO [address] [place] [address] [email or web address] documented as of this encounter Visit Diagnoses Not on filedocumented in this encounter Care Teams Beverage Distiller Relationship Specialty Start Date End Date Garth Rudolph DO [email or web address] PCP - General 04/04/17 documented as of this encounter Additional Source Comments The information contained in this document represents components of the legal health record. It is not the complete legal health record.[facility]
--- OUTSIDE RECORDS SUMMARY | 2025-05-01 11:02 | XMS_ITS | Encounter Summary ---
Author Organization [facility] Address 399 [facility] [address] [place] [address] Phone Care Team Providers Care Cook Camp Name Role Phone Ducmary anne Garth Abdi DO Primary Care Provider [phone] Garth Rudolph DO Unavailable Encounter Details Date Type Department Care Team (Late st Contact Info) Description 05/16/2017 Ancillary Orders Virtual Department 30 [place] [address] Garth Rudolph DO 179 [facility] [place] [address] [email or web address] Breast screening Social History Tobacco Use Types Packs/Day Years Used Date Smoking Tobacco: Never Assessed Comments Unknown Sex and Gender Information Value Date Recorded Sex Assigned at Not on file Legal Sex Female 9:56 PM EDT Gender Identity Not on file Sexual Orientation Not on file documented as of this encounter Plan of Treatment Upcoming Encounters Date Type Department Care Team (Late Contact Info) Description 04/22/2025 Procedure Pass [facility], Mammography- [facility] 30 [place] [address] 06/19/2025 8:30 AM EST Appointment [facility] [place] [address] 3rd [place] [address] Evita Fisher DO 22 [facility] [address] [place] [address] 06/26/2025 12:30 PM EST Office Visit [facility] 22 [facility] 3rd Floor, [address] [place] [address] Nu Drummond, MARIO 22 [facility], [address] [place] [address] 10/03/2025 11:45 AM EDT Appointment [facility], Bone Density - [address] [address] Garth Rudolph, DO 179 [facility] [address] [place], [place] [phone] 01/13/2026 11:30 AM EDT Appointment [facility], [address]amm[address] [address] Garth Rudolph, DO 179 [facility] [place] [address] documented as of this encounter Results * BI MAMMOGRAM SCREENING WITH TOMOSYNTHESIS WITH CAD (BILATERAL) (07/22/2017 2:34 PM EST) Anatomical Region Laterality Modality Breast Left, Breast Right, Breast Bilateral Bila teral Mammography 07/23/2017 7:59 PM EST Impressions 07/23/2017 8:01 PM EST No mammographic change indicative of malignancy. Routine screening is recommended. BI-RADS CATEGORY: 2 - Benign finding. DENSITY: There are scattered fibroglandular densities. POS -CDHMAM2 Narrative 07/23/2017 8:01 PM EST Bilateral full-field digital screening mammography is obtained and read in conjunction with computer-aided detection. Tomosynthesis as well as 2-D C view imaging of both breasts in two planes also obtained. Comparison made to multiple prior, most recent 05/28/2016, and most remote 12/18/2010. No dominant mass, architectural distortion, worrisome asymmetry, or suspicious calcification is identified. No skin or nipple finding of concern is appreciated. Scattered calcifications bilaterally are stable. Procedure Note Evita Broussard MD - 07/23/2017 Bilateral full-field digital screening mammography is obtained and read inconjunction with computer-aided detection. Tomosynthesis as well as 2-D Cview imaging of both breasts in two planes also obtained. Comparison madeto multiple prior, most recent 05/28/2016, and most remote 12/18/2010. No dominant mass, architectural distortion, worrisome asymmetry, orsuspicious calcification is identified. No skin or nipple finding ofconcern is appreciated. Scattered calcifications bilaterally are stable. IMPRESSION: No mammographic change indicative of malignancy. Routine screening isrecommended. BI-RADS CATEGORY: 2 - Benign finding. DENSITY: There are scattered fibroglandular densities. POS -CDHMAM2 Garth Rudolph DO IMG MG EXAMS Final Result documented in this encounter Visit Diagnoses Diagnosis Breast screening Breast screening, unspecified Breast screening Breast screening, unspecified documented in this encounter Care Teams Cook Camp Relationship Specialty Start Date End Date Garth Rudolph DO PCP - General 04/04/17 Garth Rudolph DO [address] [place] [address] Insurance Assigned Provider 10/21/18 documented as of this encounter Additional Source Comments The information contained in this document represents components of the legal health record. It is not the complete legal health record.[facility]
--- OUTSIDE RECORDS SUMMARY | 2025-05-01 11:03 | XMS_ITS | Encounter Summary ---
Author Organization [facility] Address [address] [facility] [address] [place] [address] Phone Care Team Providers Care Fac Engineer Name Role Phone Garth Rudolph Primary Care Provider [phone] Encounter Details Date Type Department Care Team (Late st Contact Info) Description 09/15/2022 Procedure Pass [address] [address] Social History Tobacco Use Types Packs/Day Years Used Date Smoking Tobacco: Every Day Cigarettes 0.5 57.1 Started: [birth year]/20/1969 Smokeless Tobacco: Never Comments:none Alcohol Use Standard Drinks/Week Comments Yes 8 (1 standard drink = 0.6 oz pur e alcohol) none Comments No Sex and Gender Information Value Date Recorded Sex Assigned at Not on file Legal Sex Female 9:56 PM EDT Gender Identity Not on file Sexual Orientation Not on file documented as of this encounter Plan of Treatment Upcoming Encounters Date Type Department Care Team (Late st Contact Info) Description 04/22/[address] [address] 06/19/2025 8:30 AM EST Appointment [facility] [address] [place] [address] Gato Fisher DO 22 [facility] [address] [place] [address] 06/26/2025 12:30 PM EST Office Visit [facility] 22 [facility] 3rd Floor, [address] [place] [address] Nu Drummond, DNP 22 [facility], [address] [place] [address] 10/03/2025 11:45 AM EDT Appointment [facility] Bone Density [address] [address] Garth Rudolph, DO 179 [place] [address] [email or web address] 01/13/2026 11:30 AM EDT Appointment [facility] Mamm[address] [address] Garth Rudolph, DO 179 [place] [address] [email or web address] documented as of this encounter Visit Diagnoses Not on filedocumented in this encounter Care Teams Fac Engineer Relationship Specialty Start Date End Date Garth Rudolph DO PCP - General 04/04/17 documented as of this encounter Additional Source Comments The information contained in this document represents components of the legal health record. It is not the complete legal health record.[facility]
--- OUTSIDE RECORDS SUMMARY | 2025-05-01 11:03 | XMS_ITS | Encounter Summary ---
Author Organization [facility] Address [address] [place] [address] Phone Care Team Providers Care Insole Rasper Name Role Phone Garth Rudolph Primary Care Provider Encounter Details Date Type Department Care Team (Late st Contact Info) Description 05/11/2024 Procedure Pass [facility], Ct Scan - [address] [address] Social History Tobacco Use Types Packs/Day Years [...] (Late Contact Info) Description 04/22/2025 Procedure Pass [facility], Mammography- [facility] 30 [place] [address] 06/19/2025 8:30 AM EST Appointment [facility] [place] [address] 3rd [place] [address] Gato Fisher, DO 22 [facility] [address] [place] [address] 06/26/2025 12:30 PM EST Office Visit [facility] [address] 3rd Floor, [address] [place] [address] Nu Drummond, DNP 22 [facility], [address] [address] 10/03/2025 11:45 AM EDT Appointment [facility] Bone [address] [address] Garth Rudolph, DO [address] [place] [address] [email or web address] 01/13/2026 11:30 AM EDT Appointment [address] [address] Garth Rudolph, DO 179 [place] [address] [email or web address] documented as of this encounter Visit Diagnoses Not on filedocumented in this encounter Care Teams Insole Rasper Relationship Specialty Start Date End Date Garth Rudolph DO PCP - General 04/04/17 documented as of this encounter Additional Source Comments The information contained in this document represents components of the legal health record. It is not the complete legal health record.[facility]
--- OUTSIDE RECORDS SUMMARY | 2025-05-01 11:03 | XMS_ITS | Encounter Summary ---
Author Organization [facility] Address [address] [place] [address] Phone Care Team Providers Care Beater Room Helper Name Role Phone Garth Rudolph Jin LOZOYA Primary Care Provider [phone] Reason for Referral * MRI/CAT Scan - Closed Specialty Diagnoses / Procedures Referred By Contac t Referred To Contact Radiology Diagnoses Chronic maxillary sinusitis Procedures CT Face CHG CT SCAN,MAXILLOFACIAL AREA,W/O CONTRAST CHG CT SCAN, FACE/JAW CONTRAST CHG CT SCANS FACE/JAW COMBO Mirta Weeks PA 6 [facility][1] [place] [address] Phone: tel: fax: Referral ID Status Reason Start Date Expiration Date Visits Re quested Visits Authorized [id number] Closed 05/02/2024 06/30/2024 1 1 Encounter Details Date Type Department Care Team (Latest Contact Info) Description 05/11/2024 Transcribe Orders Virtual Department 30 [place] [address] Mirta Weeks PA 6 [facility][1] [place] [address] Chronic maxillary sinusitis (Primary Dx) Social History Tobacco Use Types [...] st Contact Info) Description 04/22/2025 Procedure Pass [address] [address] 06/19/2025 8:30 AM EST Appointment [facility] [place] [address] Gato Fisher, DO 22 [facility] [address] [place] [address] 06/26/2025 12:30 PM EST Office Visit [facility] [address] [place] [address], [address] [place] [address] Nu Drummond, [facility] 22 [facility], [address] [address] 10/03/2025 11:45 AM EDT Appointment [facility] Bone Density [address] [address] Garth Rudolph, DO 179 [facility] [place] [address] 01/13/2026 11:30 AM EDT Appointment [address] [place] [address] Garth Rudolph, DO 179 [facility] [place] [address] [place] [address] [email or web address] documented as of this encounter Results * CT FACE (SINUS) WITHOUT CONTRAST (05/26/2024 1:45 PM EST) Anatomical Region Laterality Modality Face Computed Tomogra phy 05/28/2024 3:25 PM EST Impressions 05/28/2024 3:30 PM EST 1. Status post bilateral endoscopic sinus surgery, with moderate residual mucosal thickening in the right maxillary sinus. 2. 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 Narrative 05/28/2024 3:[address] FACE (SINUS) WITHOUT CONTRAST Referring clinician's provided indication for this examination in Epic: Outside Radiology Order; sinusitis TECHNIQUE: Multidetector-row CT of the sinuses was performed without intravenous contrast using tailored dose modulation techniques. Images were reconstructed in the axial, coronal, and sagittal planes. COMPARISON: None. FINDINGS: Frontal sinuses and frontoethmoidal junctions: Mild aerated secretions in right frontal sinus. Mucosal thickening partially obstructs the bilateral frontal sinus drainage pathways. Anterior and posterior ethmoid air cells: Status post bilateral ethmoidectomy, with mild residual mucosal thickening. Maxillary sinuses and infundibula: Status post bilateral medial antrostomies, with moderate residual mucosal thickening in the right maxillary sinus. There is surrounding bony sclerosis. There is mild mucosal thickening in the left maxillary sinus. The ibeth-ostia are patent bilaterally. Sphenoid sinuses and sphenoethmoidal recesses: Status post right sphenoidotomy. The ibeth-ostium is patent. The left sphenoid sinus air cell is hypoplastic. Nasal cavity: Status post bilateral middle turbinectomy. There is mild leftward nasal septal deviation. 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 Mastoid air cells and middle ear cavities: Normal. Clear. Temporomandibular joints: Normal. No significant degenerative remodeling. Brain: Images of the brain parenchyma are not of diagnostic quality for the soft tissues. No focal abnormality is visible with this technique. Orbits and globes: Normal. No abnormality. Procedure Note Connor Lloyd MD - 05/28/2024 CT FACE (SINUS) WITHOUT CONTRAST Referring clinician's provided indication for this examination in Epic:Outside Radiology Order; sinusitis TECHNIQUE: Multidetector-row CT of the sinuses was performed withoutintravenous contrast using tailored dose modulation techniques. Imageswere reconstructed in the axial, coronal, and sagittal planes. COMPARISON: None. FINDINGS: Frontal sinuses and frontoethmoidal junctions: Mild aerated secretions inright frontal sinus. Mucosal thickening partially obstructs the bilateralfrontal sinus drainage pathways. Anterior and posterior ethmoid air cells: Status post bilateralethmoidectomy, with mild residual mucosal thickening. Maxillary sinuses and infundibula: Status post bilateral medialantrostomies, with moderate residual mucosal thickening in the rightmaxillary sinus. There is surrounding bony sclerosis. There is mildmucosal thickening in the left maxillary sinus. The ibeth-ostia are patentbilaterally. Sphenoid sinuses and sphenoethmoidal recesses: Status post rightsphenoidotomy. The ibeth-ostium is patent. The left sphenoid sinus air cellis hypoplastic. Nasal cavity: Status post bilateral middle turbinectomy. There is mildleftward nasal septal deviation. Imaged maxillary teeth: There is a large periapical lucency in the leftpremolar maxillary alveolus, with a resultant bony defect that mayrepresent an oroantral fistula. Mastoid air cells and middle ear cavities: Normal. Clear. Temporomandibular joints: Normal. No significant degenerativeremodeling. Brain: Images of the brain parenchyma are not of diagnostic quality forthe soft tissues. No focal abnormality is visible with this technique. Orbits and globes: Normal. No abnormality. IMPRESSION: 1. Status post bilateral endoscopic sinus surgery, with moderate residualmucosal thickening in the right maxillary sinus. 2. Large periapical lucency in the left premolar maxillary alveolus, witha resultant bony defect that may represent an oroantral fistula. Mirta ESCALERA IM CT HEAD/NECK Final Resu lt documented in this encounter Visit Diagnoses Diagnosis Chronic maxillary sinusitis- Primary Chronic maxillary sinusitis documented in this encounter Care Teams Beater Room Helper Relationship Specialty Start Date End Date Garth Rudolph DO [email or web address] PCP - General 04/04/17 documented as of this encounter Additional Source Comments The information contained in this document represents components of the legal health record. It is not the complete legal health record.[facility]
--- OUTSIDE RECORDS SUMMARY | 2025-05-01 11:03 | XMS_ITS | Encounter Summary ---
Author Organization [facility] Address [address] [facility] [address] [place] [address] Phone Care Team Providers Care Classified Copy Control Clerk Name Role Phone Garth Rudolph Primary Care Provider [phone] Encounter Details Date Type Department Care Team (Latest Contact Info) Description 04/20/2024 Transcribe Orders Virtual Department [address] [place] [address] Mirta Weeks PA [address] [place] [address] [place] [address] Chronic sinusitis, unspecified location (Primary Dx) Social History Tobacco Use Types [...] Contact Info) Description 04/22/2025 Procedure Pass [address] [address] 06/19/2025 8:30 AM EST Appointment [facility] [place] [address] 3rd [place] [address] Gato Fisher, DO 22 [facility] [address] [place] [address] 06/26/2025 12:30 PM EST Office Visit [facility] [address] [place] [address] 3rd Floor, [address] [place] [address] Nu Drummond, DNP 22 [facility], [address] [place] [address] 10/03/2025 11:45 AM EDT Appointment [address] [address] Garth Rudolph, DO 179 [facility] [place] [address] 01/13/2026 11:30 AM EDT Appointment [address] [address] Garth Rudolph, DO 179 [facility] [place] [address] [email or web address] documented as of this encounter Results * XR PARANASAL SINUSES 3 OR MORE VIEWS (04/27/2024 2:00 PM EST) Anatomical Region Laterality Modality Face Computed Radiogr aphy 04/27/2024 2:02 PM EST Impressions 04/27/2024 2:04 PM EST Asymmetric appearance of the maxillary sinuses with decreased lucency on the right. Findings can be seen in the setting of sinusitis or may reflect an underdeveloped maxillary sinus. Findings can be further evaluated with sinus CT. Narrative 04/27/2024 2:04 PM EST XR PARANASAL SINUSES 3 OR MORE VIEWS Referring clinician's provided indication for this examination in [facility]: Outside Radiology Order; sinusitis COMPARISON: None FINDINGS: Asymmetric appearance of the maxillary sinuses with decreased lucency on the right. No displaced fracture. Procedure Note Rod Gudino MD - 04/27/2024 XR PARANASAL SINUSES 3 OR MORE VIEWS Referring clinician's provided indication for this examination in Epic:Outside Radiology Order; sinusitis COMPARISON: None FINDINGS: Asymmetric appearance of the maxillary sinuses with decreased lucency onthe right. No displaced fracture. IMPRESSION: Asymmetric appearance of the maxillary sinuses with decreased lucency onthe right. Findings can be seen in the setting of sinusitis or may reflectan underdeveloped maxillary sinus. Findings can be further evaluated withsinus CT. Mirta ESCALERA IMG XR HEAD AND SHUNT SERIE S Final Result documented in this encounter Visit Diagnoses Diagnosis Chronic sinusitis, unspecified location- Primary Chronic sinusitis, unspecified location documented in this encounter Care Teams Classified Copy Control Clerk Relationship Specialty Start Date End Date aGrth Rudolph DO [email or web address] PCP - General 04/04/17 documented as of this encounter Additional Source Comments The information contained in this document represents components of the legal health record. It is not the complete legal health record.[facility]
--- OUTSIDE RECORDS SUMMARY | 2025-05-01 11:03 | XMS_ITS | Encounter Summary ---
Author Organization [facility] Address [address] [facility] [address] [place] [address] Phone Care Team Providers Care Sales And Service Associate Name Role Phone Garth Rudolph DO Primary Care Provider [phone] Encounter Details Date Type Department Care Team ([facility] st Contact Info) Description 04/22/2025 Transcribe Orders Virtual Department 30 [place] [address] Garth Rudolph DO 179 [facility] [place] [address] [email or web address] Encounter for screening for osteoporosis (Primary Dx); Breast screening Social History Tobacco Use Types [...] st Contact Info) Description 04/22/2025 Procedure Pass [address] [address] 06/19/2025 8:30 AM EST Appointment [facility] [address] [address] Gato Fisher, [address] [address] 06/26/2025 12:30 PM EST Office Visit [facility] [address] [place] [address], [address] [address] Nu Drummond, [address], [address] [address] 10/03/2025 11:45 AM EDT Appointment [facility], Bone Density [address] [address] Garth Rudolph, DO 179 [place] [address] 01/13/2026 11:30 AM EDT Appointment [address] [address] Garth Rudolph, DO [address] [place] [address] [email or web address] Scheduled Orders Name Type Priority Associated Diagnoses Orde r Schedule DXA Screening Imaging Routine Encounter for screening for osteoporosis Expected: 05/22/2025, Expires: 04/22/2026 Mammogram Screening (Bilateral) Imaging Routine Breast screening Expected: 05/22/2025, Expires: 04/22/2026 documented as of this encounter Visit Diagnoses Diagnosis Encounter for screening for osteoporosis- Primary Breast screening Breast screening, unspecified documented in this encounter Care Teams Sales And Service Associate Relationship Specialty Start Date End Date Garth Rudolph DO [email or web address] PCP - General 04/04/17 documented as of this encounter Additional Source Comments The information contained in this document represents components of the legal health record. It is not the complete legal health record.[facility]
--- OUTSIDE RECORDS SUMMARY | 2025-05-01 11:03 | XMS_ITS | Encounter Summary ---
Author Organization [facility] Address [address] [facility] [address] [place] [address] Phone Care Team Providers Care Home Mortgage Disclosure Act Specialist Name Role Phone Garth Rudolph Primary Care Provider [phone] Encounter Details Date Type Department Care Team (Latest Contact Info) Description 04/23/2020 Transcribe Orders Virtual Department 30 [place] [address] Mirta Weeks PA [address] [place] [address] [place] [address] Intermittent claudication (Primary Dx); Peripheral vascular disease, unspecified Social History Tobacco Use Types Packs/Day Years [...] st Contact Info) Description 04/22/2025 Procedure Pass [facility] 30 [place] [address] 06/19/2025 8:30 AM EST Appointment [facility] [address] 3rd [place] [address] Gato Fisher DO 22 [facility] [address] [place] [address] 06/26/2025 12:30 PM EST Office Visit [facility] 22 [facility] 3rd Floor, [address] [place] [address] Nu Drummond, MARIO 22 [facility], [address] [place] [address] 10/03/2025 11:45 AM EDT Appointment [facility] 30 [place] [address] Garth Rudolph, DO 179 [facility] [place] [address] [place] [address] 01/13/2026 11:30 AM EDT Appointment [address] [address] Ronni Garth Jin, DO 179 [facility] [place] [address] [place] [address] documented as of this encounter Results * US Lower Extremity Arteries (MARY) Physio Complete Bilat (04/29/2020 12:32 PM EST) Anatomical Region Laterality Modality Ultrasound 04/29/2020 3:47 PM EST Impressions 04/29/2020 3:57 PM EST Findings consistent with severe bilateral arterial insufficiency, involving the femoropopliteal and system and below the knee outflow arteries bilaterally, right greater than left, as described above. Narrative 04/29/2020 3:57 PM EST Reason for exam (per EHR order): Noninvasive vascular evaluation was performed. Acute arterial indices are as follows: Right side is absent. On the left, they are 0.6 for the posterior tibial and 0.75 for the dorsalis pedis artery. Waveforms show significant amplitude loss with lack of normally triphasic waveforms consistent with significant arterial insufficiency. Duplex ultrasonography on the right side and left side was then performed including flow velocities. Right side: There are normally triphasic waveforms of the common femoral artery. Flow is generally noted in the profunda femoris. The SFA has abnormal biphasic waveforms which have similar appearance in the popliteal artery with evidence of spectral broadening. Waveforms become partially monophasic in the distal popliteal and posterior tibial arteries as well as the anterior tibial artery. The peroneal artery has a diminished biphasic waveform. Left side: There is patency of the common femoral artery and profunda femoris where flow is fairly well-maintained. In the SFA, there is lack of reversal of diastolic flow in the proximal portion of the vessel with subsequent further diminished flow and biphasic waveforms in the mid and distal SFA and continued bi- an partially monophasic waveforms in the popliteal artery as well as below the knee outflow vessels which exhibit biphasic waveforms in the posterior tibial and peroneal arteries and monophasic waveforms in the anterior tibial artery. 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 Left side: SCHOOL CHILD CARE ATTENDANT 45.2/7.86, proximal SFA 49.9/7.86, distal SFA 24/4.29, this legs SFA 43.9/13.5, profunda femoris 47.5/7.07, proximal popliteal artery 32.6/6.43, distal popliteal artery 18.8/17.14, proximal posterior tibial artery 34.5/13.3, mid posterior tibial artery 32.6/15.7, distal posterior tibial artery 40.9/20.8, proximal peroneal artery 22.1/7.86, mid peroneal artery 33.3/11, distal peroneal artery 43.8/14.5, proximal anterior tibial artery 22/7.86, mid anterior tibial artery 20/6.29 and distal anterior tibial artery 28.3/9.43. Procedure Note Earle Jung MD - 04/29/2020 Reason for exam (per EHR order): Noninvasive vascular evaluation was performed. Acute arterial indices are as follows: Right side is absent. On the left, they are 0.6 for the posterior tibial and 0.75 for thedorsalis pedis artery. Waveforms show significant amplitude loss with lackof normally triphasic waveforms consistent with significant arterialinsufficiency. Duplex ultrasonography on the right side and left side was then performedincluding flow velocities. Right side: There are normally triphasic waveforms of the common femoralartery. Flow is generally noted in the profunda femoris. The SFA hasabnormal biphasic waveforms which have similar appearance in the poplitealartery with evidence of spectral broadening. Waveforms become partiallymonophasic in the distal popliteal and posterior tibial arteries as wellas the anterior tibial artery. The peroneal artery has a diminishedbiphasic waveform. Left side: There is patency of the common femoral artery and profundafemoris where flow is fairly well-maintained. In the SFA, there is lack ofreversal of diastolic flow in the proximal portion of the vessel withsubsequent further diminished flow and biphasic waveforms in the mid anddistal SFA and continued bi- an partially monophasic waveforms in thepopliteal artery as well as below the knee outflow vessels which exhibitbiphasic waveforms in the posterior tibial and peroneal arteries andmonophasic waveforms in the anterior tibial artery. 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 Left side: SCHOOL CHILD CARE ATTENDANT 45.2/7.86, proximal SFA 49.9/7.86, distal SFA 24/4.29, thislegs SFA 43.9/13.5, profunda femoris 47.5/7.07, proximal popliteal icyfof50.6/6.43, distal popliteal artery 18.8/17.14, proximal posterior tibialartery 34.5/13.3, mid posterior tibial artery 32.6/15.7, distal posteriortibial artery 40.9/20.8, proximal peroneal artery 22.1/7.86, mid peronealartery 33.3/11, distal peroneal artery 43.8/14.5, proximal anterior tibialartery 22/7.86, mid anterior tibial artery 20/6.29 and distal anteriortibial artery 28.3/9.43. IMPRESSION: Findings consistent with severe bilateral arterial insufficiency,involving the femoropopliteal and system and below the knee outflowarteries bilaterally, right greater than left, as described above. Mirta ESCALERA US VASCULAR Final Resul t documented in this encounter Visit Diagnoses Diagnosis Intermittent claudication- Primary Unspecified peripheral vascular disease Peripheral vascular disease, unspecified Intermittent claudication Unspecified peripheral vascular disease Peripheral vascular disease, unspecified documented in this encounter Care Teams Home Mortgage Disclosure Act Specialist Relationship Specialty Start Date End Date Garth Rudolph DO [email or web address] PCP - General 04/04/17 documented as of this encounter Additional Source Comments The information contained in this document represents components of the legal health record. It is not the complete legal health record.[facility]
--- OUTSIDE RECORDS SUMMARY | 2025-05-01 11:03 | XMS_ITS | Encounter Summary ---
Author Organization [facility] Address [address] [address] Phone Care Team Providers Care Distance Learning Unit Leader Name Role Phone Garth Rudolph Primary Care Provider [phone] Encounter Details Date Type Department Care Team (Late st Contact Info) Description 07/09/2024 Procedure Pass [facility] Admitting Dept Virtual Department 30 [place] [address] Social History Tobacco Use Types Packs/Day Years [...] st Contact Info) Description 04/22/2025 Procedure Pass [address] [address] 06/19/2025 8:30 AM EST Appointment [facility] [address] [place] [address] Gato Fisher, [address] [address] 06/26/2025 12:30 PM EST Office Visit [facility] [address] [place] [address], [address] [address] Nu Drummond, [facility] 22 [facility] [place], [address] [address] 10/03/2025 11:45 AM EDT Appointment [address] [address] Garth Rudolph, DO 179 [place] [address] 01/13/2026 11:30 AM EDT Appointment [address] [address] Garth Rudolph, DO 179 [place] [address] [email or web address] documented as of this encounter Visit Diagnoses Not on filedocumented in this encounter Care Teams Distance Learning Unit Leader Relationship Specialty Start Date End Date Garth Rudolph DO [email or web address] PCP - General 04/04/17 documented as of this encounter Additional Source Comments The information contained in this document represents components of the legal health record. It is not the complete legal health record.[facility]
--- OUTSIDE RECORDS SUMMARY | 2025-05-01 11:03 | XMS_ITS | Encounter Summary ---
Author Organization [facility] Address 399 [facility] [address] [place] [address] Phone Care Team Providers Care Marine Diesel Technician Name Role Phone Garth Rudolph Primary Care Provider [phone] Encounter Details Date Type Department Care Team (Latest Contact Info) Description 04/29/2020 Ancillary Orders Virtual Department 30 [place] [address] Mirta Weeks PA 6 [facility] [place] [address] Intermittent claudication; Peripheral vascular disease, unspecified; Abnormal ankle brachial index (MARY) Social History Tobacco Use Types Packs/Day Years [...] st Contact Info) Description 04/22/2025 Procedure Pass [facility] 30 [place] [address] 06/19/2025 8:30 AM EST Appointment [facility] [address] 3rd [place] [address] Gato Fisher DO 22 [facility] [address] [place] [address] 06/26/2025 12:30 PM EST Office Visit [facility] 22 [facility] 3rd Floor, [address] [place] [address] Nu Drummond, MARIO 22 [facility], [address] [place] [address] 10/03/2025 11:45 AM EDT Appointment [facility] 30 [place] [address] Garth Rudolph, DO 179 [facility] [place] [address] 01/13/2026 11:30 AM EDT Appointment [address] [address] Garth Rudolph, DO 179 [facility] [place] [address] documented as of this encounter Results * US Lower Extremity Arteries Duplex Complete (Bilateral) (04/29/2020 12:32 PM EST) Anatomical Region Laterality Modality Ultrasound 04/29/2020 3:58 PM EST Impressions 04/29/2020 3:58 PM EST Impression: Please refer to report with accession number [id number]. Thank you. Narrative 04/29/2020 3:58 PM EST US LOWER EXTREMITY ARTERIES DUPLEX COMPLETE (BILATERAL) DUPLEX US LOWER EXTREMITY ARTERIAL BILATERAL COMPLETE NONINVASIVE PHYSIOLOGIC STUDIES OF LOWER EXTREMITY ARTERIES BILATERAL LOWER EXTREMITY ANKLE BRACHIAL INDICES TECHNIQUE: Duplex arterial ultrasonographic examination of the bilateral external iliac and lower extremities arterial system was performed using a combination of munoz scale, color and pulsed wave Doppler. Additionally noninvasive physiologic studies of the lower extremity arteries (bilateral lower extremity ankle brachial indices was performed). Procedure Note Earle Jung MD - 04/29/2020 US LOWER EXTREMITY ARTERIES DUPLEX COMPLETE (BILATERAL) DUPLEX US LOWER EXTREMITY ARTERIAL BILATERAL COMPLETE NONINVASIVE PHYSIOLOGIC STUDIES OF LOWER EXTREMITY ARTERIES BILATERAL LOWER EXTREMITY ANKLE BRACHIAL INDICES TECHNIQUE: Duplex arterial ultrasonographic examination of the bilateral externaliliac and lower extremities arterial system was performed using acombination of munoz scale, color and pulsed wave Doppler. Additionallynoninvasive physiologic studies of the lower extremity arteries (bilaterallower extremity ankle brachial indices was performed). IMPRESSION: Impression: Please refer to report with accession number [id number]. Desireyou. us Mirta ESCALERA CV US VASCULAR Final Resul t documented in this encounter Visit Diagnoses Diagnosis Intermittent claudication Unspecified peripheral vascular disease Peripheral vascular disease, unspecified Abnormal ankle brachial index (MARY) Intermittent claudication Unspecified peripheral vascular disease Peripheral vascular disease, unspecified Abnormal ankle brachial index (MARY) documented in this encounter Care Teams Marine Diesel Technician Relationship Specialty Start Date End Date Garth Rudolph DO [email or web address] PCP - General 04/04/17 documented as of this encounter Additional Source Comments The information contained in this document represents components of the legal health record. It is not the complete legal health record.[facility]
--- OUTSIDE RECORDS SUMMARY | 2025-05-01 11:03 | XMS_ITS | Encounter Summary ---
Author Organization [facility] Address [address] [facility] [address] [place] [address] Phone Care Team Providers Care Cafeteria Associate Name Role Phone Garth Rudolph DO Primary Care Provider [phone] Encounter Details Date Type Department Care Team (Late st Contact Info) Description 09/15/2022 Transcribe Orders Virtual Department 30 [place] [address] Garth Rudolph DO 179 [facility] [address] [place], [place] [id number] [email or web address] Breast screening (Primary Dx) Social History Tobacco Use Types [...] st Contact Info) Description 04/22/2025 Procedure Pass [facility], [facility] 30 [place] [address] 06/19/2025 8:30 AM EST Appointment [facility] [address] 3rd Floor [place], [place] [address] Gato Fisher DO 22 [facility] [address] [place] [address] 06/26/2025 12:30 PM EST Office Visit [facility] 22 [facility] 3rd Floor, [address] [place] [address] Nu Drummodn, DNP 22 [facility], [address] [place] [address] 10/03/2025 11:45 AM EDT Appointment [facility] Bone Density [address] [address] Garth Rudolph, DO 179 [facility] [place] [address] [place] [address] 01/13/2026 11:30 AM EDT Appointment [facility] Mamm[address] [address] Garth Rudolph, DO 179 [facility] [place] [address] [place] [address] documented as of this encounter Results * [...] DATE: 12 Months Recommendation: Left Mammography Screening Garth Rudolph DO IMG MG EXAMS Final Result documented in this encounter Visit Diagnoses Diagnosis Breast screening- Primary Breast screening, unspecified Breast screening Breast screening, unspecified documented in this encounter Care Teams Cafeteria Associate Relationship Specialty Start Date End Date Garth Rudolph DO PCP - General 04/04/17 documented as of this encounter Additional Source Comments The information contained in this document represents components of the legal health record. It is not the complete legal health record.[facility]
--- OUTSIDE RECORDS SUMMARY | 2025-05-01 11:03 | XMS_ITS | Encounter Summary ---
Author Organization [facility] Address 399 [facility] [address] [place] [address] Phone Care Team Providers Care Logistic Specialist Name Role Phone Ducmary anne Garth Abdi DO Primary Care Provider [phone] Garth Rudolph DO Unavailable Encounter Details Date Type Department Care Team (Late st Contact Info) Description 08/08/2018 Ancillary Orders Virtual Department 30 [place] [address] Garth Rudolph DO 179 [facility] [place] [address] [place] [address] Breast screening Social History Tobacco Use Types [...] (Late Contact Info) Description 04/22/2025 Procedure Pass [facility], M[facility]ography- [facility] 30 [place] [address] 06/19/2025 8:30 AM EST Appointment [facility] [place] [address]rd [place] [address] Gato Fisher DO 22 [facility] [address] [place] [address] 06/26/2025 12:30 PM EST Office Visit [facility] 22 [facility] 3rd Floor, [address] [place] [address] Nu Drummond, MARIO 22 [facility], [address] [place] [address] 10/03/2025 11:45 AM EDT Appointment [facility], Bone Density - [address] [address] Garth Rudolph, DO 179 [facility] [place] [address] [place] [address] 01/13/2026 11:30 AM EDT Appointment [facility], [address] [address] Garth Rudolph, DO 179 [facility] [place] [address] [place] [address] [email or web address] documented as of this encounter Results * BI MAMMOGRAM SCREENING WITH TOMOSYNTHESIS WITH CAD (BILATERAL) (08/09/2019 11:57 AM EST) Anatomical Region Laterality Modality Breast Left, Breast Right, Breast Bilateral Bila teral Mammography 08/09/2019 6:02 PM EST Impressions 08/09/2019 6:06 PM EST BILATERAL BREASTS: Negative, no evidence of malignancy. Normal interval follow- up is recommended in 12 months. Bi-RADS: BI-RADS CATEGORY: 1 - Negative. DENSITY: There are scattered fibroglandular densities. POS - [id number] Narrative 08/09/2019 6:06 PM EST STUDY: Bilateral screening mammography with tomosynthesis and CAD TECHNIQUE: Bilateral full-field digital screening mammography is obtained and read in conjunction with computer-aided detection. Tomosynthesis as well as 2-D C view imaging were obtained. COMPARISON: Comparison made to multiple prior, most recent August 08, 2018, and most remote February 26, 2013. BREAST COMPOSITION: There are scattered areas of fibroglandular density BILATERAL BREASTS: No significant masses, calcifications or other abnormalities are seen. Procedure Note Randee Burton MD - 08/09/2019 STUDY: Bilateral screening mammography with tomosynthesis and CAD TECHNIQUE: Bilateral full-field digital screening mammography is obtainedand read in conjunction with computer-aided detection. Tomosynthesis aswell as 2-D C view imaging were obtained. COMPARISON: Comparison made to multiple prior, most recent July, and most remote February 26, 2013. BREAST COMPOSITION: There are scattered areas of fibroglandulardensity BILATERAL BREASTS: No significant masses, calcifications or otherabnormalities are seen. IMPRESSION: BILATERAL BREASTS: Negative, no evidence of malignancy. Normal intervalfollow-up is recommended in 12 months. Bi-RADS: BI-RADS CATEGORY: 1 - Negative. DENSITY: There are scattered fibroglandular densities. POS - [id number] Grath Rudolph DO IMG MG EXAMS Final Result documented in this encounter Visit Diagnoses Diagnosis Breast screening Breast screening, unspecified Breast screening Breast screening, unspecified documented in this encounter Care Teams Logistic Specialist Relationship Specialty Start Date End Date Garth Rudolph DO PCP - General 04/04/17 Garth Rudolph DO 179 [place] [address] Insurance Assigned Provider 10/21/18 documented as of this encounter Additional Source Comments The information contained in this document represents components of the legal health record. It is not the complete legal health record.[facility]
--- OUTSIDE RECORDS SUMMARY | 2025-05-01 11:03 | XMS_ITS | Encounter Summary ---
Author Organization [facility] Address [address] [facility] [address] [place] [address] Phone Care Team Providers Care Visual Aid Expert Name Role Phone DucGarth north Jin LOZOYA Primary Care Provider [phone] Encounter Details Date Type Department Care Team (Latest Contact Info) Description 07/23/2020 Ancillary Orders [facility] [address] [place] [address] 3rd Floor, [address] [place] [address] Gato Fisher DO 22 [facility] [address] [place] [address] [email or web address] Stenosis of carotid artery, unspecified laterality; Other specified symptoms and signs involving the circulatory and respiratory systems; Claudication Social History Tobacco Use Types Packs/Day Years [...] st Contact Info) Description 04/22/2025 Procedure Pass [facility] [address] [place] [address] 06/19/2025 8:30 AM EST Appointment [facility] [address] 3rd [place] [address] Gato Fisher DO 22 [facility] [address] [place] [address] 06/26/2025 12:30 PM EST Office Visit [facility] 22 [facility] 3rd Floor, [address] [place] [address] Nu Drummond, MARIO 22 [facility], [address] [place] [address] 10/03/2025 11:45 AM EDT Appointment [facility] Bone [address] [address] Garth Rudolph, DO 179 [facility] [address] [place], [place] [id number] [email or web address] 01/13/2026 11:30 AM EDT Appointment [address] [address] Garth Rudolph, DO 179 [facility] [place] [address] documented as of this encounter Results * US Lower Extremity Arteries (MARY) Physio Complete Unilat (07/23/2020 3:16 PM EST) Anatomical Region Laterality Modality Ultrasound Narrative 07/28/2020 1:04 PM EST See scanned document. Procedure Note Azam Matthews MD - 07/28/2020 See scanned document. us Gato Fisher DO CV US VASCULAR Final Result * US Aorta Duplex Complete (07/23/2020 3:16 PM EST) Anatomical Region Laterality Modality Aorta Ultrasound Narrative 07/28/2020 1:04 PM EST See scanned document. us Gato A Arcoleo DO IMG US ABDOMEN Final Result documented in this encounter Visit Diagnoses Diagnosis Stenosis of carotid artery, unspecified laterality Other specified symptoms and signs involving the circulatory and respiratory systems Claudication Unspecified peripheral vascular disease Stenosis of carotid artery, unspecified laterality Other specified symptoms and signs involving the circulatory and respiratory systems Claudication Unspecified peripheral vascular disease documented in this encounter Care Teams Visual Aid Expert Relationship Specialty Start Date End Date Garth Rudolph DO [email or web address] PCP - General 04/04/17 documented as of this encounter Additional Source Comments The information contained in this document represents components of the legal health record. It is not the complete legal health record.[facility]
--- OUTSIDE RECORDS SUMMARY | 2025-05-01 11:03 | XMS_ITS | Encounter Summary ---
Author Organization [facility] Address [address] [facility] [address] [place] [address] Phone Care Team Providers Care Hide Or Skin Buffer Name Role Phone Garth Rudolph DO Primary Care Provider [phone] Garth Rudolph DO Unavailable Encounter Details Date Type Department Care Team (Latest Contact Info) Description 10/11/2018 Transcribe Orders Virtual Department [address] [place] [address] Monik Orozco CNP [address] [place] [id number] [email or web address] Other specified symptoms and signs involving the circulatory and respiratory systems (Primary Dx) Social History Tobacco Use Types [...] st Contact Info) Description 04/22/2025 Procedure Pass [facility], [facility] [address] [place] [address] 06/19/2025 8:30 AM EST Appointment [facility] [place] [address] Gato Fisher DO [address] [facility] [address] [place] [address] 06/26/2025 12:30 PM EST Office Visit [facility] [address] [facility] [address] Floor, [address] [place] [address] Nu Drummond, MARIO [address] [facility], [address] [place] [address] 10/03/2025 11:45 AM EDT Appointment [facility] Bone Density [address] [address] Garth Rudolph, DO [address] [facility] [place] [address] [place] [address] [email or web address] 01/13/2026 11:30 AM EDT Appointment [facility] [address] [place] [address] Garth Rudolph, DO [address] [facility] [place] [address] [place] [address] documented as of this encounter Results * XR CHEST PA AND LATERAL 2 VIEWS (10/12/2018 8:53 AM EDT) Anatomical Region Laterality Modality Chest Radiographic Geeta ging 10/12/2018 12:1 4 PM EDT Impressions 10/12/2018 12:18 PM EDT normal chest. POS - [id number] Narrative 10/12/2018 12:18 PM EDT EXAM: XR CHEST PA AND LATERAL 2 VIEWS COMPARISON: July 08, 2016 FINDINGS: Heart and pulmonary vascularity are normal. No infiltrates or effusions are seen. Mediastinum has a normal appearance. Bony structures are intact. Procedure Note Randee Burton MD - 10/12/2018 EXAM: XR CHEST PA AND LATERAL 2 VIEWS COMPARISON: July 08, 2016 FINDINGS: Heart and pulmonary vascularity are normal. No infiltrates or effusionsare seen. Mediastinum has a normal appearance. Bony structures areintact. IMPRESSION: normal chest. POS - [id number] Monik Kelly Pam RIPPER OPERATOR IMG XR CHEST Final Resul t documented in this encounter Visit Diagnoses Diagnosis Other specified symptoms and signs involving the circulatory and respiratory systems- Primary Other specified symptoms and signs involving the circulatory and respiratory systems documented in this encounter Care Teams Hide Or Skin Buffer Relationship Specialty Start Date End Date Garth Rudolph DO [email or web address] PCP - General 04/04/17 Garth Rudolph DO [address] [place] [address] Insurance Assigned Provider 10/21/18 documented as of this encounter Additional Source Comments The information contained in this document represents components of the legal health record. It is not the complete legal health record.[facility]
--- OUTSIDE RECORDS SUMMARY | 2025-05-01 11:03 | XMS_ITS | Encounter Summary ---
Author Organization [facility] Address [address] [place] [address] Phone Care Team Providers Care Solar Energy Consultant And Designer Name Role Phone Ducmary anneGarth DO Primary Care Provider [phone] Reason for Referral * - New Request Specialty Diagnoses / Procedures Referred By Mikaela leyva Referred To Contact Radiology Diagnoses Claudication Procedures US Lower Extremity Arteries (MARY) Physio Complete Bilat Gato Fisher DO [address] [address] Phone: tel: fax: mailto:[email or web address] Referral ID Status Reason Start Date Expiration Date V isits Requested Visits Authorized [id number] New Request 10/11/2024 1 1 * - New Request Specialty Diagnoses / Procedures Referred By Mikaela leyva Referred To Contact Radiology Diagnoses Claudication PAD (peripheral artery disease) Procedures US Aorta Duplex Complete Gato Fisher DO [address] [address] Phone: tel: fax: mailto:[email or web address] Referral ID Status Reason Start Date Expiration Date V isits Requested Visits Authorized [id number] New Request 10/11/2024 1 1 Encounter Details Date Type Department Care Team (Latest Contact Info) Description 10/11/2024 Ancillary Orders [facility] [address] [place] [address] Gato Fisher, [address] [facility] [address] [place] [address] [email or web address] Claudication (Primary Dx); PAD (peripheral artery disease) Social History Tobacco Use Types Packs/Day [...] st Contact Info) Description 04/22/2025 Procedure Pass [facility], [facility] [address] [place] [address] 06/19/2025 8:30 AM EST Appointment [facility] [address] [place] [address] Gato Fisher, DO [address] [facility] [address] [place] [address] 06/26/2025 12:30 PM EST Office Visit [facility] [address], [address] [place] [address] Nu Drummond, DNP [address] [facility], [address] [place] [address] 10/03/2025 11:45 AM EDT Appointment [address] [address] Garth Rudolph, DO [address] [facility] [place] [address] [email or web address] 01/13/2026 11:30 AM EDT Appointment [address] [address] Garth Rudolph, DO [address] [facility] [place] [address] [email or web address] documented as of this encounter Results * US Lower Extremity Arteries (MARY) Physio Complete Bilat (10/11/2024 11:16 AM EDT) Arm 110 mmHg Posterior Tibial 110 mmHg Posterior Tibial Index 1.00 Dorsalis Pedis 110 mmHg Dorsalis Pedis Index 1.00 Arm 110 mmHg Posterior Tibial 50 mmHg Posterior Tibial Index 0.45 Dorsalis Pedis 50 mmHg Dorsalis Pedis Index 0.45 Anatomical Region Laterality Modality Ultrasound Narrative 10/12/2024 7:27 AM EDT Impression: Right Side: Ankle/Brachial index on the right side is 1.0, previously 0.96. Left Side: Ankle/Brachial index on the left side is 0.45, previously 0.59. Compared to prior exam of comparison is made to the previous exam of 07/25/2023. us Gato Fisher DO CV US VASCULAR Final Result * US Aorta Duplex Complete (10/11/2024 11:16 AM EDT) Height 158 cm Weight 61 kg Anatomical Region Laterality Modality Aorta Ultrasound Narrative 10/12/2024 7:25 AM EDT Impression: No high-grade obstructive lesion or aneurysmal dilatation in the infrarenal abdominal aorta or iliac arteries bilaterally. Abdominal Aorta ; Aorta: Prox: 3.0 x 2.6 x 2.6 cm; 50 cm/sec Mid: 2.1 x 1.8 x 1.9 cm; 96 cm/sec Distal: 1.8 x 1.7 x 1.7 cm; 55 cm/sec Right Common Iliac Artery: Multiphasic flow with heterogeneous plaque Prox: 150 cm/sec Distal: 132 cm/sec Diameter: 0.9 x 0.8 x 0.8 cm Right External Iliac Artery: Multiphasic flow with heterogeneous plaque Prox: 107 cm/sec Mid: 157 cm/sec Distal: 128 cm/sec Left Common Iliac Artery: Multiphasic flow with heterogeneous plaque Prox: 140 cm/sec Distal: 156 cm/sec Diameter: 0.9 x 0.8 x 0.8 cm Left External Iliac Artery: Multiphasic flow with heterogeneous plaque Prox: 103 cm/sec Mid: 126 cm/sec Distal: 122 cm/sec us Gato Fisher DO IMG US ABDOMEN Final Result documented in this encounter Visit Diagnoses Diagnosis PVD (peripheral vascular disease) Unspecified peripheral vascular disease Claudication Unspecified peripheral vascular disease PAD (peripheral artery disease) Unspecified peripheral vascular disease Claudication- Primary Unspecified peripheral vascular disease PAD (peripheral artery disease) Unspecified peripheral vascular disease documented in this encounter Care Teams Solar Energy Consultant And Designer Relationship Specialty Start Date End Date Garth Rudolph DO PCP - General 04/04/17 documented as of this encounter Additional Source Comments The information contained in this document represents components of the legal health record. It is not the complete legal health record.[facility]
[2025-05-01 13:04] LABS: MANUAL DIFF FLAG NO
[2025-05-01 13:17] LABS: Hematocrit 42.7 % (37.0-47.0); Hemoglobin 13.8 g/dl (12.0-16.0); Imm Gran Abs Auto 0.01 X10*3/uL (0.00-0.03); Imm Gran Pct Auto 0.2 % (0.0-0.4); Lymphocytes Absolute Auto 2.6 X10*3/uL (1.2-4.9); Mean Corpuscular HGB Conc 32.3 g/dl (31.0-35.0); Mean Corpuscular Hemoglobin 31.9 pg (27.0-33.0); Mean Corpuscular Volume 98.8 fL (80.0-98.0); NRBC Abs Auto 0.000 X10*3/uL (0.0-0.012); NRBC Pct Auto 0.0 /100WBC (0.0-0.2); Platelet Count 193 X10*3/uL (160-400); Red Blood Count 4.32 X10*6/uL (4.20-5.50); White Blood Count 6.0 X10*3/uL (4.8-10.8)
[2025-05-01 13:46] LABS: Alanine Aminotransferase 17 U/L (0-31); Albumin Level 4.3 g/dL (3.5-5.0); Alkaline Phosphatase 85 U/L (39-117); Anion Gap 13 (12-20); Aspartate Amino Transferase 26 U/L (5-31); Blood Urea Nitrogen 14 mg/dL (9-16); Calcium 9.6 mg/dL (8.4-10.2); Carbon Dioxide 27 mmol/L (22-29); Chloride 105 mmol/L (96-108); Cholesterol 149 mg/dL (<200); Estimated Glomerular Filt Rate > 60; HDL Cholesterol 72 mg/dL (>40); Iron 103 mcg/dL (30-160); Percent Iron Saturation 33 % (15-50); Potassium 4.5 mmol/L (3.3-5.1); Sodium 140 mmol/L (135-145); Total Iron Binding Capacity 310 mcg/dL (228-428); Total Protein 7.3 g/dL (6.5-8.0); Triglycerides 83 mg/dL (<150); Unsaturated Iron Binding 207 ug/dL
== END 2025-05-01 09:44 | disposition home or self-care (01) ==
LOC: HO.MANLDS 09:43
PROVIDERS: Internal Medicine; Visit Provider Physician Assistant
DX: Z13.6 Encounter for screening for cardiovascular disorders (principal); Z12.11 Encounter for screening for malignant neoplasm of colon; D50.0 Iron deficiency anemia secondary to blood loss (chronic); E55.9 Vitamin D deficiency, unspecified
CPT/HCPCS: 36415; 80053; 80061; 82306; 83540; 85025; 85652; 86140